=== PATIENT | male | born 2005 | race Caucasian/White ===

== ENCOUNTER → 2024-02-10 15:32 | Outpatient (REF) | payer OTHER, SELFPAY | LOC: RAD 15:32 | PROVIDERS: ATTENDING PHYSICIAN Physician Assistant Medical | DX: M25.521 Pain in right elbow (principal) | CPT/HCPCS: 73080 ==

== ENCOUNTER 2024-04-03 09:26 | Outpatient (RCR) | payer OTHER, BC, SELFPAY | END 2024-04-03 23:59 | disposition home or self-care (01) | LOC: ROT 09:26 | PROVIDERS: ATTENDING PHYSICIAN Orthopaedic Surgery Hand Surgery; FAMILY PHYSICIAN Family Medicine | DX: S53.441D Ulnar collateral ligament sprain of right elbow, subsequent encounter (principal); Z73.6 Limitation of activities due to disability | CPT/HCPCS: 97035; 97166; 97535 ==

== ENCOUNTER 2024-04-29 13:20 | Outpatient (RCR) | payer OTHER, BC, SELFPAY | END 2024-04-29 23:59 | disposition home or self-care (01) | LOC: ROT 13:20 | PROVIDERS: ATTENDING PHYSICIAN Orthopaedic Surgery Hand Surgery; FAMILY PHYSICIAN Family Medicine | DX: S53.441D Ulnar collateral ligament sprain of right elbow, subsequent encounter (principal); Z73.6 Limitation of activities due to disability | CPT/HCPCS: 97010; 97035; 97110; 97140; 97530 ==